=== PATIENT | male | born 1970 | race African-American/Black ===

== ENCOUNTER 2022-12-01 12:05 | Inpatient (IN) | payer BC, SELFPAY ==
[2022-12-01 14:32] VITALS: BMI 34.0
[2022-12-01] MEDS ORDERED: niCARdipine 25 MG in Sodium Chloride 0.9% 250 ML 250 ML IVPB SCH (14:45)
[2022-12-01] MEDS ORDERED: Bisacodyl 10 MG SUPP PR PRN (15:27)
[2022-12-01] MEDS ORDERED: Senokot S 8.6-50 MG TAB PO PRN (15:27)
[2022-12-01] MEDS ORDERED: Bisacodyl 5 MG TAB PO PRN (15:27)
[2022-12-01] MEDS: Lactated Ringer's 1,000 ML IV SCH (16:15)
[2022-12-01] MEDS: Carvedilol 12.5 MG TAB PO SCH (16:15)
[2022-12-01] MEDS: Insulin Regular 300 UNITS/3 ML VIAL SC PRN ×2 (16:16→20:18)
[2022-12-01] MEDS ORDERED: Lantus 1000 UNITS/10 ML VIAL SC SCH (16:30)
[2022-12-01] MEDS ORDERED: NIFEdipine XL 60 MG TAB PO SCH (16:30)
[2022-12-01] MEDS: niCARdipine 25 MG in Sodium Chloride 0.9% 250 ML 250 ML IVPB PRN ×4 (16:44→22:32)
[2022-12-01] MEDS: Labetalol HCl 100 MG/20 ML VIAL SLOW IVP PRN ×2 (16:45→17:17)
[2022-12-01] MEDS: NIFEdipine XL 60 MG TAB PO SCH (16:59)
[2022-12-01] MEDS: Famotidine 20 MG TAB PO SCH (20:12)
[2022-12-01] MEDS: hydrALAZINE 25 MG TAB PO SCH (20:12)
[2022-12-01] MEDS: Atorvastatin Calcium 40 MG TAB PO SCH (20:13)
[2022-12-02] MEDS: Insulin Regular 300 UNITS/3 ML VIAL SC PRN ×6 (00:04→20:56)
[2022-12-02] MEDS: niCARdipine 25 MG in Sodium Chloride 0.9% 250 ML 250 ML IVPB PRN ×2 (01:54→06:38)
[2022-12-02 04:15] LABS: #Basophils 0.1 10x3/uL (0.0-0.2); #Eosinphils 0.4 10x3/uL (0.0-0.5); %Basophils 0.4 % (0.0-2.0); %Eosinophils 2.3 % (0.0-6.0); %Lymphocytes 15.5 % (18.0-47.0); %Monocytes 6.3 % (0.0-10.0); %Neutrophils 75.1 % (40.0-75.0); Hematocrit 44.2 % (38.8-50.0); Hemoglobin 14.8 g/dL (13.5-17.5); Mean Corpuscular HGB CONC 33.5 g/dL (32.0-36.0); Mean Corpuscular Hemoglobin 26.8 pg (27.0-33.0); Mean Corpuscular Volume 80.1 fl (81.2-95.1); Platelet Count 233 10x3/uL (150-450); RBC Distribution Width 12.9 % (11.5-14.5); Red Blood Cell (RBC) Count 5.52 10x6/uL (4.32-5.72); White Blood Cell (WBC) Count 15.9 10x3/uL (3.5-10.5)
[2022-12-02 04:29] LABS: Anion Gap 15 mmol/L (10-20); BUN (Urea Nitrogen) 12 mg/dL (8.4-25.7); CK (CPK) 119 U/L (30-200); Calc. Creatinine Clearance 83 mL/min (70-130); Calcium 8.6 mg/dL (7.8-10.44); Carbon Dioxide 23 mmol/L (22-29); Cardiac Risk 4.8 (Less than 4.5); Chloride 107 mmol/L (98-107); Cholesterol 198 mg/dl (< 200 Desired); Estimated GFR 52; Glucose 234 mg/dL (70-105); HDL Cholesterol 41 mg/dL (>60 Neg Risk); LDL Cholesterol, Calculated 121 mg/dL; Potassium 2.8 mmol/L (3.5-5.1); Sodium 142 mmol/L (136-145); Triglycerides 179 mg/dL (Less than 150)
[2022-12-02 04:43] LABS: Free T4 (Free Thyroxine) 1.1 ng/dL (0.70-1.48); Thyroid Stimulating Hormone 1.4301 uIU/mL (0.35-4.94)
[2022-12-02] MEDS ORDERED: Lorazepam 2 MG/ML VIAL ONE (05:00)
[2022-12-02] MEDS: Lactated Ringer's 1,000 ML IV SCH ×2 (05:25→16:48)
[2022-12-02] MEDS: Potassium Chloride 20 MEQ in Premix Bag 1 BAG IVPB SCH ×3 (05:27→09:14)
[2022-12-02 05:52] LABS: Magnesium 1.7 mg/dL (1.6-2.6)
[2022-12-02] MEDS: levETIRAcetam 500 MG/5 ML VIAL SLOW IVP SCH ×2 (06:31→17:41)
[2022-12-02] MEDS: NIFEdipine XL 60 MG TAB PO SCH (07:55)
[2022-12-02] MEDS: hydrALAZINE 25 MG TAB PO SCH (07:56)
[2022-12-02] MEDS: Carvedilol 12.5 MG TAB PO SCH ×2 (07:56→16:57)
[2022-12-02] MEDS: Famotidine 20 MG TAB PO SCH ×2 (07:56→20:03)
[2022-12-02] MEDS: Aspirin 81 mg Enteric Coated Tablet PO SCH (07:56)
[2022-12-02] MEDS: Lantus 1000 UNITS/10 ML VIAL SC SCH (07:57)
[2022-12-02] MEDS: cefTRIAXone\\ROCEPHIN 2 GM in Sodium Chloride 0.9% 100 ML IVPB SCH (10:12)
[2022-12-02 12:09] LABS: Hemoglobin A1c 13.3 % (4.0-6.0)
[2022-12-02] MEDS: Atorvastatin Calcium 40 MG TAB PO SCH (20:03)
[2022-12-03] MEDS ORDERED: Labetalol HCl 100 MG/20 ML VIAL SLOW IVP SCH (02:45)
[2022-12-03 04:18] LABS: #Basophils 0.1 10x3/uL (0.0-0.2); #Eosinphils 0.3 10x3/uL (0.0-0.5); #Neutrophils 11.4 10x3/uL (1.5-8.4); %Basophils 0.3 % (0.0-2.0); %Eosinophils 1.7 % (0.0-6.0); %Lymphocytes 15.1 % (18.0-47.0); %Monocytes 6.9 % (0.0-10.0); %Neutrophils 75.6 % (40.0-75.0); Hematocrit 43.1 % (38.8-50.0); Hemoglobin 14.3 g/dL (13.5-17.5); Mean Corpuscular HGB CONC 33.2 g/dL (32.0-36.0); Mean Corpuscular Hemoglobin 26.4 pg (27.0-33.0); Mean Corpuscular Volume 79.7 fl (81.2-95.1); Mean Platelet Volume 10.8 fl (7.4-10.4); Platelet Count 267 10x3/uL (150-450); RBC Distribution Width 13.1 % (11.5-14.5); Red Blood Cell (RBC) Count 5.41 10x6/uL (4.32-5.72); White Blood Cell (WBC) Count 15.1 10x3/uL (3.5-10.5)
[2022-12-03 04:20] LABS: Anion Gap 14 mmol/L (10-20); BUN (Urea Nitrogen) 10 mg/dL (8.4-25.7); Calc. Creatinine Clearance 93 mL/min (70-130); Calcium 8.3 mg/dL (7.8-10.44); Carbon Dioxide 24 mmol/L (22-29); Chloride 104 mmol/L (98-107); Estimated GFR 58; Glucose 148 mg/dL (70-105); Sodium 139 mmol/L (136-145)
[2022-12-03 04:24] LABS: Potassium 2.6 mmol/L (3.5-5.1)
[2022-12-03 04:59] LABS: Magnesium 1.6 mg/dL (1.6-2.6)
[2022-12-03] MEDS: Potassium Chloride 20 MEQ TAB PO SCH ×2 (05:12→07:50)
[2022-12-03] MEDS: levETIRAcetam 500 MG/5 ML VIAL SLOW IVP SCH ×2 (05:32→18:48)
[2022-12-03] MEDS ORDERED: hydrALAZINE 25 MG TAB PO SCH (06:00)
[2022-12-03] MEDS: Aspirin 81 mg Enteric Coated Tablet PO SCH (07:50)
[2022-12-03] MEDS: Spironolactone 25 MG TAB PO SCH (07:51)
[2022-12-03] MEDS: Famotidine 20 MG TAB PO SCH ×3 (07:51→22:37)
[2022-12-03] MEDS: Carvedilol 12.5 MG TAB PO SCH ×2 (07:51→18:46)
[2022-12-03] MEDS: NIFEdipine XL 30 MG TAB PO SCH (07:53)
[2022-12-03] MEDS: niCARdipine 25 MG in Sodium Chloride 0.9% 250 ML 250 ML IVPB PRN ×4 (08:02→22:42)
[2022-12-03] MEDS: cefTRIAXone\\ROCEPHIN 2 GM in Sodium Chloride 0.9% 100 ML IVPB SCH (08:12)
[2022-12-03] MEDS: Lantus 1000 UNITS/10 ML VIAL SC SCH (08:33)
[2022-12-03] MEDS ORDERED: Potassium Chloride 20 MEQ TAB PO SCH (11:00)
[2022-12-03] MEDS: Lactated Ringer's 1,000 ML IV SCH ×2 (11:12→20:11)
[2022-12-03] MEDS: Insulin Regular 300 UNITS/3 ML VIAL SC PRN ×2 (11:45→22:29)
[2022-12-03 12:15] LABS: Potassium 3.4 mmol/L (3.5-5.1)
[2022-12-03] MEDS: hydrALAZINE 25 MG TAB PO SCH ×3 (16:50→22:37)
[2022-12-03] MEDS: Atorvastatin Calcium 40 MG TAB PO SCH ×2 (20:09→22:37)
[2022-12-03] MEDS ORDERED: Lorazepam 2 MG/ML VIAL ONE (20:32)
[2022-12-03] MEDS ORDERED: levETIRAcetam 500 MG/5 ML VIAL SLOW IVP SCH (21:00)
[2022-12-03] MEDS ORDERED: Lorazepam 2 MG/ML VIAL SLOW IVP SCH (22:30)
[2022-12-04] MEDS ORDERED: VANCOMYCIN 2 GRAM/400 ML BAG IVPB SCH (00:30)
[2022-12-04] MEDS ORDERED: Cefepime 2 GM in Sodium Chloride 0.9% 100 ML IVPB SCH (00:30)
[2022-12-04] MEDS: niCARdipine 25 MG in Sodium Chloride 0.9% 250 ML 250 ML IVPB PRN (00:43)
[2022-12-04] MEDS ORDERED: VANCOMYCIN 2 GRAM/400 ML BAG 2 GM in Premix Bag 1 BAG IVPB SCH (01:00)
[2022-12-04] MEDS: Insulin Regular 300 UNITS/3 ML VIAL SC PRN ×4 (01:09→21:39)
[2022-12-04 01:29] LABS: #Basophils 0.1 10x3/uL (0.0-0.2); #Eosinphils 0.1 10x3/uL (0.0-0.5); #Monocytes 1.9 10x3/uL (0.0-1.1); #Neutrophils 16.3 10x3/uL (1.5-8.4); %Basophils 0.3 % (0.0-2.0); %Eosinophils 0.3 % (0.0-6.0); %Lymphocytes 2.3 % (18.0-47.0); %Monocytes 10.1 % (0.0-10.0); %Neutrophils 85.4 % (40.0-75.0); Hematocrit 39.5 % (38.8-50.0); Hemoglobin 13.2 g/dL (13.5-17.5); Mean Corpuscular HGB CONC 33.4 g/dL (32.0-36.0); Mean Corpuscular Hemoglobin 26.7 pg (27.0-33.0); Mean Corpuscular Volume 79.8 fl (81.2-95.1); Mean Platelet Volume 11.2 fl (7.4-10.4); Platelet Count 244 10x3/uL (150-450); RBC Distribution Width 13.3 % (11.5-14.5); Red Blood Cell (RBC) Count 4.95 10x6/uL (4.32-5.72); White Blood Cell (WBC) Count 19.1 10x3/uL (3.5-10.5)
[2022-12-04] MEDS ORDERED: Acetaminophen 650 MG Suppository PR PRN (01:38)
[2022-12-04 04:32] LABS: #Eosinphils 0.1 10x3/uL (0.0-0.5); #Monocytes 1.6 10x3/uL (0.0-1.1); #Neutrophils 15.6 10x3/uL (1.5-8.4); %Basophils 0.2 % (0.0-2.0); %Eosinophils 0.3 % (0.0-6.0); %Lymphocytes 4.1 % (18.0-47.0); %Neutrophils 85.9 % (40.0-75.0); Hemoglobin 12.7 g/dL (13.5-17.5); Mean Corpuscular HGB CONC 32.6 g/dL (32.0-36.0); Mean Corpuscular Hemoglobin 26.3 pg (27.0-33.0); Mean Corpuscular Volume 80.9 fl (81.2-95.1); Mean Platelet Volume 11.3 fl (7.4-10.4); Platelet Count 228 10x3/uL (150-450); RBC Distribution Width 13.6 % (11.5-14.5); Red Blood Cell (RBC) Count 4.82 10x6/uL (4.32-5.72); White Blood Cell (WBC) Count 18.1 10x3/uL (3.5-10.5)
[2022-12-04 04:51] LABS: Anion Gap 16 mmol/L (10-20); BUN (Urea Nitrogen) 17 mg/dL (8.4-25.7); Calc. Creatinine Clearance 69 mL/min (70-130); Calcium 8.1 mg/dL (7.8-10.44); Carbon Dioxide 18 mmol/L (22-29); Chloride 105 mmol/L (98-107); Estimated GFR 40; Glucose 255 mg/dL (70-105); Potassium 3.2 mmol/L (3.5-5.1); Sodium 136 mmol/L (136-145)
[2022-12-04 05:45] LABS: Magnesium 1.4 mg/dL (1.6-2.6)
[2022-12-04] MEDS: levETIRAcetam 500 MG/5 ML VIAL SLOW IVP SCH ×2 (05:52→19:08)
[2022-12-04] MEDS: Potassium Chloride 20 MEQ in Premix Bag 1 BAG IVPB SCH ×3 (05:53→11:39)
[2022-12-04 06:23] LABS: Bilirubin Neg (Negative); Blood, Urine 25 (Negative); Clarity Clear (Clear); Glucose, Urine (Dipstick) 250 mg/dL (Negative); Ketone, Urine 50 mg/dL (Negative); Leukocyte Negative (Negative); Nitrite Negative (Negative); Protein, Urine (Dipstick) 100 mg/dl (Neg-Trace); Urobilinogen Normal mg/dL (Less than 2)
[2022-12-04 06:32] LABS: Bacteria/HPF Rare-Few HPF (None Seen); Mucous/LPF Rare LPF (<2+); RBC/HPF 0-3 HPF (0-3); WBC/HPF 0-3 HPF (0-3)
[2022-12-04] MEDS: Lantus 1000 UNITS/10 ML VIAL SC SCH (08:08)
[2022-12-04] MEDS: Carvedilol 12.5 MG TAB PO SCH ×2 (08:37→16:43)
[2022-12-04] MEDS: Spironolactone 25 MG TAB PO SCH (08:38)
[2022-12-04] MEDS: Aspirin 81 mg Enteric Coated Tablet PO SCH (08:42)
[2022-12-04] MEDS: Famotidine 20 MG TAB PO SCH ×2 (08:43→21:26)
[2022-12-04] MEDS: NIFEdipine XL 30 MG TAB PO SCH (08:43)
[2022-12-04] MEDS: hydrALAZINE 25 MG TAB PO SCH ×3 (08:43→21:26)
[2022-12-04] MEDS ORDERED: cefTRIAXone\\ROCEPHIN 2 GM in Sodium Chloride 0.9% 100 ML IVPB SCH (10:00)
[2022-12-04] MEDS: Lactated Ringer's 1,000 ML IV SCH (10:49)
[2022-12-04] MEDS: cefTRIAXone\\ROCEPHIN 2 GM in Sodium Chloride 0.9% 100 ML IVPB SCH (11:05)
[2022-12-04] MEDS ORDERED: Lidocaine 1% PF 5 ML VIAL ONE (13:15)
[2022-12-04] MEDS ORDERED: Sodium Bicarbonate 2.5 MEQ/5 ML VIAL ONE (13:15)
[2022-12-04 15:18] LABS: CSF, Glucose 124 mg/dl (40-70); CSF, Protein 84 mg/dL (15-40)
[2022-12-04] MEDS: SODIUM CHLORIDE 0.9% IVPB SCH ×2 (15:21→22:20)
[2022-12-04] MEDS: ACYCLOVIR SODIUM IVPB SCH ×2 (15:21→22:20)
[2022-12-04 15:31] LABS: Color Of CSF Supernatant COLORLESS (Colorless); Tube # 1; Unspun CSF Color COLORLESS (Colorless)
[2022-12-04 16:25] LABS: CSF Source CSF; Clarity Clear (Clear); Tube # 3
[2022-12-04 16:26] LABS: CSF RBC Count - Manual 0 /cu.mm (None Seen)
[2022-12-04 16:52] LABS: CSF WBC/NonHematics Count-Man 7 /cu.mm (0-5)
[2022-12-04] MEDS: Atorvastatin Calcium 40 MG TAB PO SCH (21:26)
[2022-12-05] MEDS: Acetaminophen 325 MG TAB PO PRN (00:32)
[2022-12-05] MEDS: Insulin Regular 300 UNITS/3 ML VIAL SC PRN ×6 (00:33→20:59)
[2022-12-05] MEDS: Lactated Ringer's 1,000 ML IV SCH (01:28)
[2022-12-05] MEDS ORDERED: Vancomycin 1.5 GRAM/300 ML BAG 1.5 GM in Premix Bag 1 BAG IVPB SCH (02:00)
[2022-12-05 03:37] LABS: #Basophils 0.1 10x3/uL (0.0-0.2); #Eosinphils 0.2 10x3/uL (0.0-0.5); #Monocytes 1.4 10x3/uL (0.0-1.1); #Neutrophils 8.2 10x3/uL (1.5-8.4); %Basophils 0.5 % (0.0-2.0); %Eosinophils 1.7 % (0.0-6.0); %Lymphocytes 9.3 % (18.0-47.0); %Monocytes 12.5 % (0.0-10.0); %Neutrophils 75.4 % (40.0-75.0); Hematocrit 38.6 % (38.8-50.0); Hemoglobin 12.9 g/dL (13.5-17.5); Mean Corpuscular HGB CONC 33.4 g/dL (32.0-36.0); Mean Corpuscular Hemoglobin 26.4 pg (27.0-33.0); Mean Corpuscular Volume 79.1 fl (81.2-95.1); Mean Platelet Volume 10.4 fl (7.4-10.4); Platelet Count 224 10x3/uL (150-450); RBC Distribution Width 13.7 % (11.5-14.5); Red Blood Cell (RBC) Count 4.88 10x6/uL (4.32-5.72); White Blood Cell (WBC) Count 10.9 10x3/uL (3.5-10.5)
[2022-12-05 03:43] LABS: Anion Gap 15 mmol/L (10-20); BUN (Urea Nitrogen) 21 mg/dL (8.4-25.7); Calc. Creatinine Clearance 81 mL/min (70-130); Calcium 8.4 mg/dL (7.8-10.44); Carbon Dioxide 19 mmol/L (22-29); Chloride 106 mmol/L (98-107); Estimated GFR 49; Glucose 239 mg/dL (70-105); Potassium 3.1 mmol/L (3.5-5.1); Sodium 137 mmol/L (136-145)
[2022-12-05] MEDS: Potassium Chloride 20 MEQ in Premix Bag 1 BAG IVPB SCH ×3 (04:14→09:06)
[2022-12-05 04:26] LABS: Magnesium 1.6 mg/dL (1.6-2.6)
[2022-12-05] MEDS ORDERED: Magnesium 2 GM/50 ML(in water) 2 GM in Premix Bag 1 BAG IVPB SCH (04:30)
[2022-12-05] MEDS: SODIUM CHLORIDE 0.9% IVPB SCH ×3 (05:50→21:10)
[2022-12-05] MEDS: levETIRAcetam 500 MG/5 ML VIAL SLOW IVP SCH ×2 (05:50→17:35)
[2022-12-05] MEDS: ACYCLOVIR SODIUM IVPB SCH ×3 (05:50→21:10)
[2022-12-05] MEDS: Aspirin 81 mg Enteric Coated Tablet PO SCH (08:51)
[2022-12-05] MEDS: hydrALAZINE 25 MG TAB PO SCH ×3 (08:51→20:53)
[2022-12-05] MEDS: Spironolactone 25 MG TAB PO SCH (08:51)
[2022-12-05] MEDS: Famotidine 20 MG TAB PO SCH ×2 (08:51→20:54)
[2022-12-05] MEDS: Carvedilol 12.5 MG TAB PO SCH ×2 (08:51→16:35)
[2022-12-05] MEDS: NIFEdipine XL 30 MG TAB PO SCH (08:53)
[2022-12-05] MEDS: Lantus 1000 UNITS/10 ML VIAL SC SCH (08:53)
[2022-12-05] MEDS ORDERED: Magnevist 469MG/ML 20 ML VIAL ONE (10:16)
[2022-12-05] MEDS: Atorvastatin Calcium 40 MG TAB PO SCH (20:55)
[2022-12-06] MEDS: hydrALAZINE 25 MG TAB PO SCH ×4 (03:23→20:44)
[2022-12-06] MEDS: Acetaminophen 325 MG TAB PO PRN (03:26)
[2022-12-06 03:29] LABS: #Basophils 0.1 10x3/uL (0.0-0.2); #Eosinphils 0.2 10x3/uL (0.0-0.5); #Monocytes 1.7 10x3/uL (0.0-1.1); #Neutrophils 5.9 10x3/uL (1.5-8.4); %Basophils 0.5 % (0.0-2.0); %Eosinophils 2.3 % (0.0-6.0); %Lymphocytes 19.9 % (18.0-47.0); %Monocytes 16.9 % (0.0-10.0); %Neutrophils 59.6 % (40.0-75.0); Hematocrit 38.2 % (38.8-50.0); Hemoglobin 12.7 g/dL (13.5-17.5); Mean Corpuscular HGB CONC 33.2 g/dL (32.0-36.0); Mean Corpuscular Hemoglobin 26.8 pg (27.0-33.0); Mean Corpuscular Volume 80.6 fl (81.2-95.1); Platelet Count 238 10x3/uL (150-450); RBC Distribution Width 13.5 % (11.5-14.5); Red Blood Cell (RBC) Count 4.74 10x6/uL (4.32-5.72); White Blood Cell (WBC) Count 9.9 10x3/uL (3.5-10.5)
[2022-12-06 03:42] LABS: Anion Gap 14 mmol/L (10-20); BUN (Urea Nitrogen) 18 mg/dL (8.4-25.7); Calc. Creatinine Clearance 75 mL/min (70-130); Calcium 8.7 mg/dL (7.8-10.44); Carbon Dioxide 22 mmol/L (22-29); Chloride 107 mmol/L (98-107); Estimated GFR 46; Glucose 207 mg/dL (70-105); Potassium 3.5 mmol/L (3.5-5.1); Sodium 139 mmol/L (136-145)
[2022-12-06] MEDS ORDERED: Labetalol HCl 100 MG/20 ML VIAL SLOW IVP SCH ×2 (03:45→06:45)
[2022-12-06] MEDS: levETIRAcetam 500 MG/5 ML VIAL SLOW IVP SCH ×2 (05:36→17:55)
[2022-12-06] MEDS: ACYCLOVIR SODIUM IVPB SCH ×3 (05:37→21:24)
[2022-12-06] MEDS: SODIUM CHLORIDE 0.9% IVPB SCH ×3 (05:37→21:24)
[2022-12-06 06:14] LABS: Metanephrine,Ur 88 ug/L (Undefined); Metanephrines Total-24H 121 ug/24 hr (58-276); Normetanephrine,Ur 355 ug/L (Undefined); Normetanephrines-24H U 488 ug/24 hr (156-729)
[2022-12-06] MEDS: NIFEdipine XL 30 MG TAB PO SCH (08:12)
[2022-12-06] MEDS: Spironolactone 25 MG TAB PO SCH (08:12)
[2022-12-06] MEDS: Famotidine 20 MG TAB PO SCH ×2 (08:12→20:44)
[2022-12-06] MEDS: Aspirin 81 mg Enteric Coated Tablet PO SCH (08:12)
[2022-12-06] MEDS: Carvedilol 12.5 MG TAB PO SCH ×2 (08:12→17:55)
[2022-12-06] MEDS: Lantus 1000 UNITS/10 ML VIAL SC SCH (08:13)
[2022-12-06] MEDS: Insulin Regular 300 UNITS/3 ML VIAL SC PRN ×4 (08:13→20:49)
[2022-12-06 09:50] LABS: Amphetamine Not Detected (NotDetected); Barbiturates Screen Not Detected (NotDetected); Benzodiazepine Screen Detected (NotDetected); Cocaine Metabolite Screen Not Detected (NotDetected); Methadone Not Detected (NotDetected); Methamphetamine Not Detected (NotDetected); Opiate Screen Not Detected (NotDetected); Oxycodone Screen Not Detected (NotDetected); Phencyclidine (PCP) Not Detected (NotDetected); THC/Cannabinoid Screen Not Detected (NotDetected); Tricyclic Screen Not Detected (NotDetected)
[2022-12-06 16:13] LABS: VMA-24H Urine 6.1 mg/24 hr (0.0-7.5)
[2022-12-06] MEDS: Atorvastatin Calcium 40 MG TAB PO SCH (20:44)
[2022-12-07 00:12] LABS: Dopamine 24H Ur 190 ug/24 hr (0-510); Dopamine,Ur 138 ug/L (Undefined); Epinephrine 24H Ur 6 ug/24 hr (0-20); Epinephrine,Ur 4 ug/L (Undefined); Norephinephrine 24H U 58 ug/24 hr (0-135); Norephinephrine,Ur 42 ug/L (Undefined)
[2022-12-07 04:42] LABS: #Basophils 0.1 10x3/uL (0.0-0.2); #Eosinphils 0.3 10x3/uL (0.0-0.5); #Monocytes 1.4 10x3/uL (0.0-1.1); #Neutrophils 5.8 10x3/uL (1.5-8.4); %Basophils 0.7 % (0.0-2.0); %Eosinophils 2.6 % (0.0-6.0); %Lymphocytes 22.8 % (18.0-47.0); %Monocytes 14.4 % (0.0-10.0); %Neutrophils 58.5 % (40.0-75.0); Anion Gap 13 mmol/L (10-20); BUN (Urea Nitrogen) 19 mg/dL (8.4-25.7); Calc. Creatinine Clearance 72 mL/min (70-130); Calcium 8.7 mg/dL (7.8-10.44); Carbon Dioxide 23 mmol/L (22-29); Chloride 107 mmol/L (98-107); Estimated GFR 44; Glucose 253 mg/dL (70-105); Hematocrit 37.1 % (38.8-50.0); Hemoglobin 12.2 g/dL (13.5-17.5); Mean Corpuscular HGB CONC 32.9 g/dL (32.0-36.0); Mean Corpuscular Hemoglobin 26.5 pg (27.0-33.0); Mean Corpuscular Volume 80.7 fl (81.2-95.1); Mean Platelet Volume 10.6 fl (7.4-10.4); Platelet Count 280 10x3/uL (150-450); Potassium 3.7 mmol/L (3.5-5.1); RBC Distribution Width 13.6 % (11.5-14.5); Sodium 139 mmol/L (136-145); White Blood Cell (WBC) Count 9.9 10x3/uL (3.5-10.5)
[2022-12-07] MEDS: SODIUM CHLORIDE 0.9% IVPB SCH (05:11)
[2022-12-07] MEDS: ACYCLOVIR SODIUM IVPB SCH (05:11)
[2022-12-07] MEDS: Insulin Regular 300 UNITS/3 ML VIAL SC PRN ×2 (05:11→12:44)
[2022-12-07] MEDS: levETIRAcetam 500 MG/5 ML VIAL SLOW IVP SCH (05:50)
[2022-12-07] MEDS: hydrALAZINE 25 MG TAB PO SCH ×2 (05:51→15:45)
[2022-12-07] MEDS ORDERED: Carvedilol 25 MG TAB PO SCH (08:00)
[2022-12-07] MEDS ORDERED: levETIRAcetam 500 MG TAB PO SCH (09:00)
[2022-12-07] MEDS ORDERED: Lantus 1000 UNITS/10 ML VIAL SC SCH (09:00)
[2022-12-07] MEDS: NIFEdipine XL 30 MG TAB PO SCH (09:31)
[2022-12-07] MEDS: Famotidine 20 MG TAB PO SCH (09:31)
[2022-12-07] MEDS: Aspirin 81 mg Enteric Coated Tablet PO SCH (09:32)
[2022-12-07] MEDS: Spironolactone 25 MG TAB PO SCH (09:32)
[2022-12-07 13:18] VITALS: TEMP 98.4
[2022-12-07 20:08] VITALS: BP 133/102
[2022-12-11 12:36] LABS: Enterovirus RT-PCR Negative (Negative)
== END 2022-12-07 17:00 | DRG 638 ==
LOC: CSHICU 14:03 → CSHTELE 12-06 13:57
PROVIDERS: ADMIT Hospitalist; ATTEND Internal Medicine
PROC: 009U3ZX Drainage of Spinal Canal, Percutaneous Approach, Diagnostic (ICD-10-PCS; principal; 2022-12-04)
PROC: B01B1ZZ Fluoroscopy of Spinal Cord using Low Osmolar Contrast (ICD-10-PCS; 2022-12-04)
PROC: 4A00X4Z Measurement of Central Nervous Electrical Activity, External Approach (ICD-10-PCS; 2022-12-04)
DX: E11.65 Type 2 diabetes mellitus with hyperglycemia (principal); I16.1 Hypertensive emergency; N17.9 Acute kidney failure, unspecified; I67.82 Cerebral ischemia; I67.4 Hypertensive encephalopathy; R47.01 Aphasia; R41.82 Altered mental status, unspecified; D72.829 Elevated white blood cell count, unspecified; R29.90 Unspecified symptoms and signs involving the nervous system; R56.9 Unspecified convulsions; J32.0 Chronic maxillary sinusitis; R31.9 Hematuria, unspecified; I12.9 Hypertensive chronic kidney disease with stage 1 through stage 4 chronic kidney disease, or unspecified chronic kidney disease; E11.22 Type 2 diabetes mellitus with diabetic chronic kidney disease; Z79.4 Long term (current) use of insulin; G47.33 Obstructive sleep apnea (adult) (pediatric); R53.81 Other malaise; N18.31 Chronic kidney disease, stage 3a; R47.1 Dysarthria and anarthria; Z79.899 Other long term (current) drug therapy
CPT/HCPCS: 36415; 36416; 62270; 70450; 70551; 70552; 71045; 76770; 80048; 80061; 80306; 81001; 82384; 82533; 82550; 82570; 82945; 83036; 83735; 83835; 84155; 84157; 84439; 84443; 84585; 85025; 86592; 87040; 87070; 87086; 87205; 87498; 87529; 87798; 87899; 89051; 93005; 93010; 93880; 94760; 94762; 95816; 95819; 95957; A9579; J0133; J0692; J0696; J1650; J1815; J1953; J2060; J3370; J3475; J3480; J3490; J7050; J7120